=== PATIENT | female | born 1965 | race Caucasian/White ===

== ENCOUNTER 2016-09-08 00:07 | Emergency (ER) | payer MEDICAID, OTHER ==
[~2016-09-08] VITALS: Ht 160 cm; Wt 93.0 kg
[2016-09-08 00:07] VITALS: BP_SYST 140
[~2016-09-08 00:07] MED LIST: CHOLESTEROL MED; DIABETES MED
[2016-09-08] MEDS: IBUPROFEN 600 MG TABLET PO ONE (01:56)
[2016-09-08 02:16] VITALS: BP_SYST 133
== END 2016-09-08 02:16 | disposition home or self-care (01) ==
LOC: SED 00:07
DX: S86.912A Strain of unspecified muscle(s) and tendon(s) at lower leg level, left leg, initial encounter (principal); E11.9 Type 2 diabetes mellitus without complications; F17.200 Nicotine dependence, unspecified, uncomplicated; X58.XXXA Exposure to other specified factors, initial encounter; Y93.89 Activity, other specified; Y92.89 Other specified places as the place of occurrence of the external cause; Y99.8 Other external cause status
CPT/HCPCS: 99283